=== PATIENT | male | born 1995 | race Caucasian/White ===

== ENCOUNTER 2018-03-07 16:56 | Emergency (ER) | payer OTHER ==
[2018-03-07 17:06] VITALS: BP 146/63
--- NOTE | 2018-03-07 17:10 | ED Physician Documentation ---
PD HPI SKIN - Stated complaint Stated Complaint: RT HAND PX - Chief complaint Chief Complaint: Ext Problem - History obtained from History obtained from: Patient - History of Present Illness Timing - onset: How many days ago (2-3) Timing - duration: Days (2-3) Timing - details: Abrupt onset (he noted onset and worsening of swelling and some drainage from nailbed corner, and now increased swelling/redness at end of finger today.) Location: RUE (ring finger nailbed corner) Quality / character: Painful, Discolored (red), Swelling, Draining (mild) Associated symptoms: No: Fever, Myalgias, Joint pain Similar symptoms before: Has not had sx before Recently seen: Not recently seen Review of Systems Constitutional: denies: Fever, Chills, Myalgias Neurologic: denies: Focal weakness, Numbness PD PAST MEDICAL HISTORY - Past Medical History Past Medical History: No Endocrine/Autoimmune: None - Past Surgical History Past Surgical History: No - Present Medications Home Medications: Ambulatory Orders Medication Instructions Recorded Confirmed Doxycycline Hyclate 100 mg PO BID #14 capsule 03/07/18 Mupirocin 1 applic TP TID #15 g 03/07/18 - Allergies Allergies/Adverse Reactions: Allergies Allergy/AdvReac Type Severity Reaction Status Date / Time No Known Drug Allergies Allergy Verified 03/07/18 17:03 - Social History Does the pt smoke?: No Smoking Status: Never smoker Does the pt drink ETOH?: Yes Does the pt have substance abuse?: No PD ED PE NORMAL - Vitals Vital signs reviewed: Yes - General General: Alert and oriented X 3, No acute distress, Well developed/nourished - Derm Derm: Normal color, Warm and dry - Extremities Extremities: Other (The right ring finger nailbed corner proximally shows redness and swelling. There is a pale colored small area which I nicked with a #11 scalpel blade but no real purulence came out. There is a little bit of drainage from the corner of the nail itself. The redness of the finger extends almost to the DIP joint. There is no proximal red streaking. There is local tenderness. This is consistent with a paronychia with some local cellulitis. Incidental finding on his middle finger dorsal PIP joint is a prior abrasion that has thickened dry skin and a cracked opening partial thickness of the dermis in it. He states he has not been using any ointment to it. There is no signs of infection at this area but he is advised to use the same ointment to the area to soften it and allow better healing.) Results - Vitals Vitals: Vital Signs - 24 hr 03/07/18 16:59 Temperature 36.8 C Heart Rate 82 Respiratory 20 Rate Blood Pressure 146/63 H O2 Saturation 100 Oxygen O2 Source Room air PD MEDICAL DECISION MAKING - ED course Complexity details: considered differential, d/w patient Departure - Departure Disposition: Home, Self Care Clinical Impression: Paronychia of finger Qualifiers: Laterality: right Qualified Code(s): L03.011 - Cellulitis of right finger Condition: Stable Record reviewed to determine appropriate education?: Yes Instructions: ED Fingernail Infec Follow-Up: [facility]me[facility] [Provider Group] Prescriptions: Doxycycline Hyclate 100 mg PO BID #14 capsule Mupirocin 1 applic TP TID #15 g Comments: Soak the finger in warm water to 3 times a day for the next several days and apply antibiotic ointment 2-3 times a day. Try to promote drainage from the infection area. Use oral antibiotic doxycycline twice daily for the next 5-7 days until looks fully cleared of infection. Tylenol or ibuprofen if needed for pains. Recheck if not improved over the next several days.
[2018-03-07] MEDS ORDERED: DOXYCYCLINE 100 MG TABLET PO STA (17:26)
[2018-03-07] MEDS ORDERED: MUPIROCIN 2% OINT 1 GM TOP STA (17:26)
== END 2018-03-07 17:39 | disposition home or self-care (01) ==
LOC: ED 16:56
DX: L03.011 Cellulitis of right finger (principal)
CPT/HCPCS: 99283; A9270

== ENCOUNTER 2023-11-08 06:48 | Outpatient (CLI) | payer OTHER ==
--- NOTE | 2023-11-08 20:29 | Ultrasound Report ---
PROCEDURE: Abdomen Limited INDICATIONS: ELEVATED LFTS TECHNIQUE: Real-time focused scanning was performed of the abdomen, with image documentation. COMPARISONS: None. FINDINGS: Liver: Liver is normal in size. Increased liver parenchymal echotexture is seen, no discrete hepatic lesion.. Gallbladder: Gallbladder is contracted. No gallstones, sludge, wall thickening or pericholecystic teofilo ma. Biliary ducts: Intrahepatic bile ducts are non-dilated. Extrahepatic bile duct caliber measures 3.1 mm. Normal is 6-7 mm or less in diameter, or 10 mm or less post-cholecystectomy. Pancreas: Not well visualized due to overlying bowel gas. Right kidney: Normal in size and echotexture. Right kidney measures 12.4 cm long. No hydronephrosis or nephrolithiasis. No solid masses. No complex renal cystic lesions which require follow-up. IVC: Intrahepatic inferior vena cava is patent. Miscellaneous: No free abdominal fluid. IMPRESSION: 1. Hepatic steatosis. No discrete hepatic lesion. 2. No abnormality is seen in contracted gallbladder. No biliary ductal dilatation. 3. Pancreas is not visualized due to overlying bowel gas. Reviewed by: Devin Gordon MD on 11/08/2023 8:27 PM PDT Approved by: Devin Gordon MD on 11/08/2023 8:27 PM PDT Station ID: [id number]
== END 2023-11-08 06:49 | disposition home or self-care (01) ==
LOC: DI 06:48
PROVIDERS: ATTEND Nurse Practitioner Family
DX: R74.8 Abnormal levels of other serum enzymes (principal); K76.0 Fatty (change of) liver, not elsewhere classified